=== PATIENT | male | born 1990 | race African-American/Black ===

== ENCOUNTER 2021-01-22 11:16 | Outpatient (CLI) | payer BC | END 2021-01-22 11:17 | disposition home or self-care (01) | LOC: BICRAD 11:16 | PROVIDERS: ATTEND Student in an Organized Health Care Education/Training Program | DX: M25.462 Effusion, left knee (principal) ==

== ENCOUNTER 2021-02-19 08:13 | Outpatient (CLI) | payer OTHER | END 2021-02-19 08:14 | disposition home or self-care (01) | LOC: SCSMRI 08:13 | PROVIDERS: ATTEND Family Medicine | DX: S89.92XA Unspecified injury of left lower leg, initial encounter (principal); S83.412A Sprain of medial collateral ligament of left knee, initial encounter; S76.112A Strain of left quadriceps muscle, fascia and tendon, initial encounter; S86.212A Strain of muscle(s) and tendon(s) of anterior muscle group at lower leg level, left leg, initial encounter; M25.462 Effusion, left knee ==